=== PATIENT | female | born 1990 | race Caucasian/White ===

== ENCOUNTER 2018-01-15 18:14 | Emergency (ER) | payer OTHER ==
[~2018-01-15] VITALS: Ht 157.5 cm; Wt 103.0 kg
[~2018-01-15 18:14] MED LIST: BUPR150T15; RISP1TAB43
[2018-01-15 18:26] VITALS: BP 115/54
--- NOTE | 2018-01-15 18:52 | PHYS DOC ---
Past History Past Medical History: Anxiety, Depression Past Surgical History: No Surgical History Smoking: Non-smoker Alcohol Use: None Drug Use: None Adult General Chief Complaint Chief Complaint: ANKLE PROBLEM HPI HPI 27-year-old female presents with left ankle pain. The patient was at a local bar dancing with her significant other when she inverted her ankle. Pain, but was able to walk. She presents because it is swollen on the lateral aspect. She rates the pain as minor. She denies hitting her head or any other injuries. She has no other complaints. Review of Systems Review of Systems Constitutional: Denies fever or chills [] Eyes: Denies change in visual acuity, redness, or eye pain [] HENT: Denies nasal congestion or sore throat [] Respiratory: Denies cough or shortness of breath [] Cardiovascular: No additional information not addressed in HPI [] GI: Denies abdominal pain, nausea, vomiting, bloody stools or diarrhea [] : Denies dysuria or hematuria [] Musculoskeletal: Left ankle pain[] Integument: Denies rash or skin lesions [] Neurologic: Denies headache, focal weakness or sensory changes [] Endocrine: Denies polyuria or polydipsia [] All other systems were reviewed and found to be within normal limits, except as documented in this note. Allergies Allergies Allergies Coded Allergies Type Severity Reaction Last Updated Verified Penicillins Allergy Unknown 11/11/13 Yes Physical Exam Physical Exam Constitutional: Well developed, well nourished, no acute distress, non-toxic appearance. [] HENT: Normocephalic, atraumatic, bilateral external ears normal, oropharynx moist, no oral exudates, nose normal. [] Eyes: PERRLA, EOMI, conjunctiva normal, no discharge. [] Neck: Normal range of motion, no tenderness, supple, no stridor. [] Cardiovascular:Heart rate regular rhythm, no murmur [] Lungs & Thorax: Bilateral breath sounds clear to auscultation [] Abdomen: Bowel sounds normal, soft, no tenderness, no masses, no pulsatile masses. [] Skin: Warm, dry, no erythema, no rash. [] Back: No tenderness, no CVA tenderness. [] Extremities: Minor swelling of the lateral aspect of the right ankle. No tenderness over the medial or lateral malleolus. No tenderness over the proximal fibula. The patient is able to walk. Tenderness over the left ATFL[] Neurologic: Alert and oriented X 3, normal motor function, normal sensory function, no focal deficits noted. [] Psychologic: Affect normal, judgement normal, mood normal. [] Current Patient Data Vital Signs Vital Signs Date Time Temp Pulse Resp B/P (MAP) Pulse Ox O2 Delivery O2 Flow Rate FiO2 01/15/18 18:26 Room Air 01/15/18 18:26 98.2 78 20 99 EKG EKG [] Radiology/Procedures Radiology/Procedures [] Course & Med Decision Making Course & Med Decision Making Pertinent Labs and Imaging studies reviewed. (See chart for details) The patient appears to have a sprain of the left ATFL. We will place her in an air splint. [place] ankle rules are negative. X-rays are not necessary. [] Dragon Disclaimer Dragon Disclaimer This electronic medical record was generated, in whole or in part, using a voice recognition dictation system. Departure Departure: Referrals: NEELA SAVAGE (PCP) LEDA AVILA DO Jan 15, 2018 18:52
== END 2018-01-15 19:00 | disposition home or self-care (01) ==
LOC: ER 18:14
DX: S93.401A Sprain of unspecified ligament of right ankle, initial encounter (principal); F41.9 Anxiety disorder, unspecified; F32.9 Major depressive disorder, single episode, unspecified; Z88.0 Allergy status to penicillin; X50.9XXA Other and unspecified overexertion or strenuous movements or postures, initial encounter; Y93.41 Activity, dancing; Y99.8 Other external cause status; Y92.89 Other specified places as the place of occurrence of the external cause
CPT/HCPCS: 29515; 99283

== ENCOUNTER 2020-01-22 02:46 | Emergency (ER) | payer MEDICAID, OTHER ==
[~2020-01-22] VITALS: Ht 165.1 cm; Wt 123.0 kg
[2020-01-22 03:02] VITALS: BP 129/79
[2020-01-22] MEDS ORDERED: DEXAMETHASONE 4 MG TABLET PO ONE (03:15)
[2020-01-22] MEDS ORDERED: PRED20TA PO (03:16)
[2020-01-22] MEDS ORDERED: HYDR-3165 PO (03:16)
[2020-01-22] MEDS ORDERED: ORPH-16 PO (03:16)
--- NOTE | 2020-01-22 03:16 | PHYS DOC ---
Past History Past Medical History: Anxiety, Depression Past Surgical History: No Surgical History Smoking: Non-smoker Alcohol Use: None Drug Use: None General Adult EDM: Chief Complaint: BACK PAIN - NO INJURY HPI: HPI: 29-year-old female presents with report of left lower back pain. 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 Patient reports started to have some back discomfort at around 1900. Patient reports she was unable to sleep this evening. Patient does report taking 400 mg of ibuprofen at 0200 this morning. Denies fall. Denies loss of bowel or bladder. Denies rash. Denies . Review of Systems: Review of Systems: Constitutional: Denies fever or chills Eyes: Denies redness or eye pain HENT: Denies nasal congestion or sore throat Respiratory: Denies cough or shortness of breath Cardiovascular: Denies chest pain or palpitations GI: Denies abdominal pain, nausea, or vomiting : Denies dysuria or hematuria Musculoskeletal: Reports back pain; denies joint pain Integument: Denies rash or skin lesions Neurologic: Denies headache, focal weakness or sensory changes; denies loss of bowel or bladder Complete systems were reviewed and found to be within normal limits, except as documented in this note. Allergies: Allergies: Allergies Coded Allergies Type Severity Reaction Last Updated Verified Penicillins Allergy Unknown 11/11/13 Yes Physical Exam: PE: Constitutional: Well developed, well nourished, no acute distress, non-toxic appearance HENT: Normocephalic, atraumatic Eyes: Conjunctiva normal, no discharge Neck: Normal range of motion, supple Lungs & Thorax: No respiratory distress, equal chest rise and fall Skin: Warm, dry, no erythema, no rash Back: No midline tenderness, left paraspinal low lumbar tenderness, no CVA tenderness Extremities: No tenderness, ROM intact, no edema Neurologic: Alert and oriented X 3, normal motor function, normal sensory funct ion, no focal deficits noted Psychologic: Affect normal, judgment normal EKG: EKG: [] Radiology/Procedures: Radiology/Procedures: [] Course & Med Decision Making: Course & Med Decision Making Patient presents with back pain to low lumbar paraspinal region. Denies loss of bowel or bladder. Symptomatic treatment provided with ice pack and oral steroid. Patient reports she took ibuprofen prior to arrival. Patient reports she drove to facility. Prescriptions for Mullins, Norflex, and continue steroids provided. [facility] reports without recent narcotic prescription. Patient stable for discharge with outpatient follow-up with PCP. Discussed findings and plan with patient, who acknowledges understanding and agreement. Candi Disclaimer: Candi Disclaimer: This electronic medical record was generated, in whole or in part, using a voice recognition dictation system. Departure Departure: Impression: Primary Impression: Back pain Qualified Codes: M54.5 - Low back pain Disposition: HOME/RESIDENCE PRIOR TO ADM Condition: STABLE Referrals: NEELA SAVAGE (PCP) Patient Instructions: Back Pain, Adult, [id number] Additional Instructions: Jacques Franco M.D. [address] [facility], [address] [place], [place] [address] Scripts Hydrocodone Bit/Acetaminophen (NORCO 5-325 TABLET) 1 Each Tablet 0.5-1 TAB PO Q6HRS PRN for PAIN, #10 TAB Prov: NAYAN KASPER DO 01/22/20 Orphenadrine Citrate (ORPHENADRINE CITRATE) 100 Mg Tablet.er 1 TAB PO BID PRN for MUSCLE PAIN, #14 TAB Prov: NAYAN KASPER DO 01/22/20 Prednisone (PREDNISONE) 20 Mg Tablet 2 TAB PO DAILY for Back pain, #8 TAB Start this prescription tomorrow, Tuesday01/23/20 Prov: NAYAN KASPER DO 01/22/20 Justification of Admission: Justification of Admission: Justification of Admission Dx: N/A NAYAN KASPER DO Jan 22, 2020 03:16
[2020-01-22] MEDS ORDERED: DEXAMETHASONE 4 MG TABLET ONE (03:20)
== END 2020-01-22 03:25 | disposition home or self-care (01) ==
LOC: ER 02:46
DX: M54.5 Low back pain (principal); Z88.0 Allergy status to penicillin
CPT/HCPCS: 99283; J8540

== ENCOUNTER 2020-10-04 19:23 | Emergency (ER) | payer OTHER ==
[~2020-10-04] VITALS: Ht 165.1 cm; Wt 123.0 kg
[~2020-10-04 19:23] MED LIST changes: +HYDR-3165 PO; +ORPH-16 PO; +PRED20TA PO
[2020-10-04 19:38] VITALS: BP 121/78
[2020-10-04] MEDS ORDERED: IBUPROFEN 600 MG TABLET. PO ONE (19:45)
--- NOTE | 2020-10-04 19:49 | PHYS DOC ---
Past History Past Medical History: Anxiety, Bipolar, Depression (NAYAN GEORGE APRN) Past Surgical History: No Surgical History (NAYAN GEORGE APRN) Smoking: Non-smoker Alcohol Use: Rarely Drug Use: None (NAYAN GEORGE APRN) Adult General Chief Complaint Chief Complaint: FOOT INJURY PAIN HPI HPI Patient is a 30-year-old female who presents emergency department complaining of sudden onset right foot pain while walking yesterday around noon. Patient states she took Tylenol yesterday with minor pain relief, patient states she took one of her mother's "pain medications "today with some relief however her pain is now back to a 10/10 with a 10 pain scale. Patient states that she wrapped it with Coban and KT tape. Patient states she did not notice any improvement when foot was wrapped. Patient denies any other physical complaints or physical concerns. Patient states her last menstrual cycle was September 18, 2020 with normal duration of flow. Patient states she takes Vilar, Seroquel, Zoloft for manic depression, states she is allergic to penicillin. (NAYAN GEORGE APRN) Review of Systems Review of Systems Constitutional: Denies fever or chills [] Eyes: Denies change in visual acuity, redness, or eye pain [] HENT: Denies nasal congestion or sore throat [] Respiratory: Denies cough or shortness of breath [] Cardiovascular: No additional information not addressed in HPI [] GI: Denies abdominal pain, nausea, vomiting, bloody stools or diarrhea [] : Denies dysuria or hematuria [] Musculoskeletal: Denies back pain or joint pain [] Integument: Denies rash or skin lesions [] Neurologic: Denies headache, focal weakness or sensory changes [] Endocrine: Denies polyuria or polydipsia [] All other systems were reviewed and found to be within normal limits, except as documented in this note. (NAYAN GEORGE APRN) Current Medications Current Medications Current Medications Medications (Trade) Dose Ordered Sig/Poly Start Time Stop Time Status Last Admin Dose Admin Acetaminophen/ Hydrocodone Bitart (Lortab 5/325) 2 tab 1X ONCE 10/04/20 19:45 10/04/20 19:46 UNV Ibuprofen (Motrin) 600 mg 1X ONCE 10/04/20 19:45 10/04/20 19:46 UNV (NAYAN GEORGE APRN) Allergies Allergies Allergies Coded Allergies Type Severity Reaction Last Updated Verified Penicillins Allergy Unknown 10/04/20 Yes (NAYAN GEORGE APRN) Physical Exam Physical Exam Constitutional: Well developed, well nourished, no acute distress, non-toxic appearance. 30-year-old female no apparent distress. HENT: Normocephalic, atraumatic, bilateral external ears normal, oropharynx moist, no oral exudates, nose normal. Eyes: PERRLA, EOMI, conjunctiva normal, no discharge. Neck: Normal range of motion, no tenderness, supple, no stridor. Cardiovascular:Heart rate regular rhythm, no murmur Lungs & Thorax: Bilateral breath sounds clear to auscultation Abdomen: Bowel sounds normal, soft, no tenderness, no masses, no pulsatile ma sses. Skin: Warm, dry, no erythema, no rash. Back: No tenderness, no CVA tenderness. Extremities: No tenderness, no cyanosis, no clubbing, ROM intact, no edema. Except for right foot, COBAN and KT tape removed, no crepitus appreciated, no deformities appreciated, no swelling appreciated, full movement of toes. Pain along ventral aspect of first metatarsal. Full passive range of motion of ankle and toes without pain elicited. 2+ dorsalis pedis/posterior tibial pulses. Distal cap refill less than 2 seconds. Neurologic: Alert and oriented X 3, normal motor function, normal sensory function, no focal deficits noted. Psychologic: Affect normal, judgement normal, mood normal. (NAYAN GEORGE APRN) Current Patient Data Vital Signs Vital Signs Date Time Temp Pulse Resp B/P (MAP) Pulse Ox O2 Delivery O2 Flow Rate FiO2 10/04/20 19:38 96.0 85 16 121/78 (92) 98 Room Air (NAYAN GEORGE APRN) EKG EKG [] (NAYAN GEORGE APRN) Radiology/Procedures Radiology/Procedures PATIENT: KASSIE GUZMÁN MACCOUNT: [id number] : 1990 LOCATION: ER AGE: 30 SEX: F EXAM STATUS: REG ER ORD. PHYSICIAN: NAYAN GEORGE APRN REASON: MID FOOT PAIN, X 1 DAY, NO KNOWN INJURY PROCEDURE: FOOT RIGHT 3V EXAM: XR FOOT_RIGHT 3 VIEWS 10/04/2020 7:44 PM CLINICAL INDICATION: Midfoot pain COMPARISON: None TECHNIQUE: 3 views of the right foot FINDINGS: No acute fracture. Alignment is normal. Joint spaces are maintained and bone mineralization is normal. Soft tissues normal. IMPRESSION: Normal right foot radiograph. Electronically signed by: Adwoa Reynolds MD (10/04/2020 8:11 PM) [id number] DICTATED AND SIGNED BY: ADWOA REYNOLDS MD DATE: 10/04/202009 CC: NAYAN GEORGE APRN; RASHDI WARREN ~MTH0 0 (NAYAN GEORGE APRN) Heart Score C/O Chest Pain: No Risk Factors: Risk Factors: DM, Current or recent (<one month) smoker, HTN, HLP, family history of CAD, obesity. Risk Scores: Risk Factors: DM, Current or recent (<one month) smoker, HTN, HLP, family hi story of CAD, obesity. (NAYAN GEORGE APRN) Course & Med Decision Making Course & Med Decision Making Pertinent Labs and Imaging studies reviewed. (See chart for details) 30-year-old female, vital signs reviewed, presents emergency department concerning right foot pain. Physical examination concerning for possible spontaneous metatarsal fracture of the right foot. Will order x-ray to rule out fracture or other injury of the right foot, will give p.o. pain medications. X-ray negative for acute fracture, will recommend RICE therapy with patient, [id number] Tylenol Motrin for pain. Patient was wearing CROCS shoes for examination. Will recommend supportive shoes for work and ongoing daily life to help reduce foot pain. Will recommend podiatry follow-up. Patient gave verbal understanding of discharge home instructions, follow-up with primary care this week for ongoing aches and pains, return to ER precautions or concerns, was discharged home without incident. (NAYAN GEORGE APRN) Course & Med Decision Making Did not see or evaluate patient. Agree with TERRAZZO INSTALLER's work-up and disposition per note. (NEMESIO SALMERON MD) Dragon Disclaimer Dragon Disclaimer This electronic medical record was generated, in whole or in part, using a voice recognition dictation system. (NAYAN GEORGE APRN) Departure Departure: Impression: Primary Impression: Right foot pain Disposition: 01 DC HOME SELF CARE/HOMELESS Condition: GOOD Referrals: RASHID WARREN (PCP) Patient Instructions: RICE - Routine Care for Injuries Additional Instructions: Please use Fer wrap, and RICE therapy as we discussed. You may use [id number] Tylenol or Motrin for pains. Please follow-up with KO Parada for ongoing aches and pains, she may consider having you see a cyber systems operations specialist if symptoms do not improve soon. Return to the emergency department for worsening symptoms or other concerns. EMERGENCY DEPARTMENT GENERAL DISCHARGE INSTRUCTIONS Thank you for coming to [facility] (ED) today and trusting us with you care. We trust that you had a positivie experience in our Emergency Department. If you wish to speak to the department management, you may call the director at [phone]. YOUR FOLLOW UP INSTRUCTIONS ARE FOLLOWS: 1. Do you have a private Doctor? If you do not have a private doctor, please ask for a resource list of physicians or clinics that may be able to assist you with follow up care. 2. The Emergency Physician has interpreted your x-rays. The X-Ray specialist will also review them. If there is a change in the findings, you will be notified in 48 hours when at all possible. 3. A lab test or culture has been done, your results will be reviewed and you will be notified if you need a change in treatment. ADDITIONAL INSTRUCTIONS AND INFORMATION: 1. Your care today has been supervised by a physician who is specially trained in emergency care. Many problems require more than one evaluation for a complete diagnosis and treatment. We recommend that you schedule your follow up appointment as recommended to ensure complete treatment of you illness or injury. If you are unable to obtain follow up care and continue to have a problem, or if your condition worsens, we recommend that you return to the ED. 2. We are not able to safely determine your condition over the phone nor are we able to give sound medical advice over the phone. For these safety reasons, if you call for medical advice we will ask you to come to the ED for further evaluation. 3. If you have any questions regarding these discharge instructions please call the ED at [phone]. SAFETY INFORMATION: In the interest of safety, wellness, and injury prevention; we encourage you to wear your sealbelt, if you smoke; quite smoking, and we encourage family to use a protective helmet for bicycling and other sporting events that present an increased risk for head injury. IF YOUR SYMPTOMS WORSEN OR NEW SYMPTOMS DEVELOP, OR YOU HAVE CONCERNS ABOUT YOUR CONDITION; OR IF YOUR CONDITION WORSENS WHILE YOU ARE WAITING FOR YOUR FOLLOW UP APPOINTMENT; EITHER CONTACT YOUR PRIMARY CARE DOCTOR, THE PHYSICIAN WHOSE NAME AND NUMBER YOU WERE GIVEN, OR RETURN TO THE ED IMMEDIATELY. NAYAN GEORGE APRN Oct 04, 2020 19:49 NEMESIO SALMERON MD Oct 04, 2020 23:11
--- NOTE | 2020-10-04 20:13 | RAD ---
EXAM: XR FOOT_RIGHT 3 VIEWS 10/04/2020 7:44 PM CLINICAL INDICATION: Midfoot pain COMPARISON: None TECHNIQUE: 3 views of the right foot FINDINGS: No acute fracture. Alignment is normal. Joint spaces are maintained and bone mineralizatio n is normal. Soft tissues normal. IMPRESSION: Normal right foot radiograph. Electronically signed by: Adwoa Reynolds MD (10/04/2020 8:11 PM) [id number]
[2020-10-04] MEDS ORDERED: HYDROcodone/APAP 5/325MG 1 TAB TABLET PO ONE (20:15)
== END 2020-10-04 20:45 | disposition home or self-care (01) ==
LOC: ER 19:23
DX: M79.671 Pain in right foot (principal); Z88.0 Allergy status to penicillin
CPT/HCPCS: 73630; 99283

== ENCOUNTER 2021-06-10 23:58 | Emergency (ER) | payer OTHER ==
[~2021-06-10] VITALS: Ht 162.6 cm; Wt 118.0 kg
[2021-06-11 00:12] VITALS: BP 120/84
--- NOTE | 2021-06-11 00:34 | PHYS DOC ---
Past History Past Medical History: Anxiety, Bipolar, Depression Past Surgical History: No Surgical History Smoking: Non-smoker Alcohol Use: Occasionally Drug Use: None Adult General Chief Complaint Chief Complaint: COUGH HPI HPI Patient is a 31-year-old female, otherwise healthy who presents to the emergency department with a chief complaint of concern for allergic reaction. States that she took some cough syrup a couple hours before coming to the emergency department which made her tongue feel weird and like it was swollen although it did not appear swollen when she looked at it in the mirror. Denies any headache, changes in vision, pain or trouble swallowing, chest pain, shortness o f breath, wheeze, abdominal pain, nausea, vomiting, diarrhea. Denies any lightheadedness or trouble sitting, standing or walking. Review of Systems Review of Systems Review of systems otherwise unremarkable except noted in HPI Allergies Allergies Allergies Coded Allergies Type Severity Reaction Last Updated Verified Penicillins Allergy Unknown 10/04/20 Yes Physical Exam Physical Exam Constitutional: Well developed, well nourished, no acute distress, non-toxic appearance. [] HENT: Normocephalic, atraumatic, bilateral external ears normal, oropharynx moist, no oral exudates, nose normal. [] Eyes: PERRLA, EOMI, conjunctiva normal, no discharge. [] Neck: Normal range of motion, no tenderness, supple, no stridor. [] Cardiovascular:Heart rate regular rhythm, no murmur [] Lungs & Thorax: Bilateral breath sounds clear to auscultation [] Abdomen: soft, no tenderness, no masses, no pulsatile masses. [] Skin: Warm, dry, no erythema, no rash. [] Back: No tenderness, no CVA tenderness. [] Extremities: No tenderness, no cyanosis, no clubbing, ROM intact, no edema. [] Neurologic: Alert and oriented X 3, normal motor function, normal sensory function, able to sit, stand and walk without issue, no focal deficits noted. [] Psychologic: Affect normal, judgement normal, mood normal. [] Current Patient Data Vital Signs Vital Signs Date Time Temp Pulse Resp B/P (MAP) Pulse Ox O2 Delivery O2 Flow Rate FiO2 06/11/21 00:12 97.9 112 18 120/84 (96) 95 Room Air EKG EKG [] Radiology/Procedures Radiology/Procedures [] Heart Score C/O Chest Pain: No Risk Factors: Risk Factors: DM, Current or recent (<one month) smoker, HTN, HLP, family history of CAD, obesity. Risk Scores: Risk Factors: DM, Current or recent (<one month) smoker, HTN, HLP, family history of CAD, obesity. Course & Med Decision Making Course & Med Decision Making Patient is a 31-year-old female who presents after taking some cough medicine with concern for allergic reaction Vital signs not concerning. Physical exam noted above. Patient alert and oriented no acute distress with no signs of anaphylaxis. Advised to stay away from the cough syrup that Maitre tongue feel funny. Advised to follow-up with primary care physician. Gave return precautions to the ED. Patient grateful, verbalized understanding and agreed with plan of discharge. [] Dragon Disclaimer Dragon Disclaimer This electronic medical record was generated, in whole or in part, using a voice recognition dictation system. Departure Departure: Impression: Primary Impression: Allergic reaction Disposition: HOME / SELF CARE / HOMELESS Condition: GOOD Referrals: RASHID WARREN (PCP) Patient Instructions: Allergies, Generic Additional Instructions: Thank you for coming into the emergency department tonight and allowing us to take care of you. Please read the attached information carefully to go back over some of the things we discussed. Please follow-up in the morning with your primary care physician to discuss your ED visit and set up a follow-up as needed. Please come back with new or concerning symptoms as discussed. NEMESIO SALMERON MD Jun 11, 2021 00:34
[2021-06-11] MEDS ORDERED: DEXAMETHASONE 4 MG TABLET PO ONE (01:00)
[2021-06-11] MEDS ORDERED: diphenhydrAMINE HCL 25 MG CAPSULE PO ONE (01:00)
== END 2021-06-11 00:54 | disposition home or self-care (01) ==
LOC: ER 23:58
DX: T78.40XA Allergy, unspecified, initial encounter (principal); F31.9 Bipolar disorder, unspecified; F41.9 Anxiety disorder, unspecified; Z88.0 Allergy status to penicillin; X58.XXXA Exposure to other specified factors, initial encounter
CPT/HCPCS: 99283; J8540; Q0163

== ENCOUNTER 2021-11-09 17:12 | Emergency (ER) | payer OTHER ==
[~2021-11-09] VITALS: Ht 162.6 cm; Wt 118.0 kg
[2021-11-09 18:24] VITALS: BP 118/38
[2021-11-09 19:10] LABS: CLARITY,URINE CLOUDY; COLOR,URINE YELLOW; GLUCOSE,URINE NEG (NEG)
[2021-11-09 19:11] LABS: BACTERIA,URINE MANY /HPF (0-FEW); NITRITE,URINE NEG (NEG); RBC,URINE TNTC /HPF (0-2); SQUAMOUS EPITHELIAL CELL,UR MANY /LPF; UROBILINOGEN,URINE 0.2 mg/dL (0.2 mg/dL)
--- NOTE | 2021-11-09 19:18 | PHYS DOC ---
Past History Past Medical History: Anxiety, Bipolar, Depression Past Surgical History: No Surgical History Smoking: Non-smoker Alcohol Use: Occasionally Drug Use: None General Adult EDM: Chief Complaint: BACK PAIN OR INJURY HPI: HPI: Patient is a 31-year-old female presents with right-sided back pain that rad iates to right lower abdomen. Denies pain with urination. Denies nausea/vomiting/diarrhea. Patient states that she does have a history of kidney stones. History of anxiety, depression, bipolar disorder Review of Systems: Review of Systems: ROS At least 10 ROS systems have been reviewed and are negative except as documented in the HPI. General: Negative except as outlined in HPI above. Skin: Negative except as outlined in HPI above. HEENT: Negative except as outlined in HPI above. Neck: Negative except as outlined in HPI above. Respiratory: Negative except as outlined in HPI above.. Cardiovascular: Negative except as outlined in HPI above. Abdomen: Negative except as outlined in HPI above. : Negative except as outlined in HPI above. Back/MSK: Negative except as outlined in HPI above. Neuro: Negative except as outlined in HPI above. Psych: Negative except as outlined in HPI above. Allergies: Allergies: Allergies Coded Allergies Type Severity Reaction Last Updated Verified Penicillins Allergy Unknown 10/04/20 Yes Physical Exam: PE: Constitutional: Well developed, well nourished, no acute distress, non-toxic appearance. [] HENT: Normocephalic, atraumatic, bilateral external ears normal, oropharynx moist, no oral exudates, nose normal. [] Eyes: PERRLA, EOMI, conjunctiva normal, no discharge. [] Neck: Normal range of motion, no tenderness, supple, no stridor. [] Cardiovascular:Heart rate regular rhythm, no murmur [] Lungs & Thorax: Bilateral breath sounds clear to auscultation [] Abdomen: Bowel sounds normal, soft, no tenderness, no masses Skin: Warm, dry, no erythema, no rash. [] Back: Right-sided back tenderness, no CVA tenderness. [] Extremities: No tenderness, no cyanosis, no clubbing, ROM intact, no edema. [] Neurologic: Alert and oriented X 3, normal motor function, normal sensory function, no focal deficits noted. [] Psychologic: Affect normal, judgement normal, mood normal. [] Current Patient Data: Labs: Laboratory Tests Test 11/09/21 17:52 POC Urine HCG, Qualitative hcg negative (Negative) Vital Signs: Vital Signs Date Time Temp Pulse Resp B/P (MAP) Pulse Ox O2 Delivery O2 Flow Rate FiO2 11/09/21 18:24 97.9 84 16 118/38 (64) 98 Room Air EKG: EKG: [] Radiology/Procedures: Radiology/Procedures: []Abdominal and Pelvis CT, Without Contrast: History: Reason: RLQ PAIN / Spl. Instructions: / History: Comparison: None. Procedure: Axial images are obtained of the abdomen and pelvis, without IV or oral contrast. Oral Contrast: No Findings: Evaluation of solid organs is limited without contrast. The appendix is normal. The gallbladder appears normal. Liver: Normal. Spleen: Normal. Pancreas: Normal. Adrenal Glands: Normal. Kidneys: There is moderate hydronephrosis secondary to a 6 mm UPJ stone. There is additional small nonobstructing stones in the right renal pelvis. Left kidney appears normal. There is no free air or free fluid. There is no lymphadenopathy. The urinary bladder appears normal. There is no pericolonic inflammation identified. There is a right hip effusion. Impression: 1. Moderate right hydronephrosis secondary to a 6 mm UPJ stone. 2. Right hip effusion. End impression PQRS Compliance Statement: One or more of the following individualized dose reduction techniques were utilized for this examination: 1. Automated exposure control 2. Adjustment of the mA and/or kV according to patient size 3. Use of iterative reconstruction technique Electronically signed by: Mary Jane Hoyt III, MD (11/09/2021 7:46 PM) [facility] DICTATED AND SIGNED BY: MARY JANE HOYT III, MD DATE: 11/09/211941 CC: ARABELLA ARIAS MD; RAJANI LOPES APRN; RASHID WARREN ~ Heart Score: C/O Chest Pain: No Risk Factors: Risk Factors: DM, Current or recent (<one month) smoker, HTN, HLP, family history of CAD, obesity. Risk Scores: Score 0 - 3: 2.5% MACE over next 6 weeks - Discharge Home Score 4 - 6: 20.3% MACE over next 6 weeks - Admit for Clinical Observation Score 7 - 10: 72.7% MACE over next 6 weeks - Early Invasive Strategies Course & Med Decision Making: Course & Med Decision Making Pertinent Labs and Imaging studies reviewed. (See chart for details) [] 29-year-old female presents with right-sided back pain that radiates to her right lower abdomen. No dysuria or frequency. UA and test ordered. UA is positive for large blood. 5-[address] shows Moderate right hydronephrosis secondary to a 6 mm UPJ stone. Patient given Flomax. Urine negative for infection. Patient sent home with prescription for hydrocodone, Flomax, urology consult. Discussed return pre cautions with patient. Advised patient to drink plenty of fluids. Dragon Disclaimer: Orderlordon Disclaimer: This electronic medical record was generated, in whole or in part, using a voice recognition dictation system. Departure Departure: Impression: Primary Impression: Kidney stone Disposition: HOME / SELF CARE / HOMELESS Condition: STABLE Referrals: RASHID WARREN (PCP) Patient Instructions: Kidney Stones, [id number] Additional Instructions: You are seen in the emergency room for flank pain. CT of your abdomen pelvis showed a 6 mm kidney stone. Sending you home with prescription for hydrocodone for pain, Flomax, strainer. Please make sure that you follow-up with urology. Return emergency room if you have worsening symptoms or concerns such as increasing pain, fever uncontrolled nausea and vomiting. EMERGENCY DEPARTMENT GENERAL DISCHARGE INSTRUCTIONS Thank you for coming to [facility] (ED) today and trusting us with you care. We trust that you had a positivie experience in our Emergency Department. If you wish to speak to the department management, you may call the director at [phone]. YOUR FOLLOW UP INSTRUCTIONS ARE FOLLOWS: 1. Do you have a private Doctor? If you do not have a private doctor, please ask for a resource list of physicians or clinics that may be able to assist you with follow up care. 2. The Emergency Physician has interpreted your x-rays. The X-Ray specialist will also review them. If there is a change in the findings, you will be notified in 48 hours when at all possible. 3. A lab test or culture has been done, your results will be reviewed and you will be notified if you need a change in treatment. ADDITIONAL INSTRUCTIONS AND INFORMATION: 1. Your care today has been supervised by a physician who is specially trained in emergency care. Many problems require more than one evaluation for a complete diagnosis and treatment. We recommend that you schedule your follow up appointment as recommended to ensure complete treatment of you illness or injury. If you are unable to obtain follow up care and continue to have a problem, or if your condition worsens, we recommend that you return to the ED. 2. We are not able to safely determine your condition over the phone nor are we able to give sound medical advice over the phone. For these safety reasons, if you call for medical advice we will ask you to come to the ED for further evaluation. 3. If you have any questions regarding these discharge instructions please call the ED at [phone]. SAFETY INFORMATION: In the interest of safety, wellness, and injury prevention; we encourage you to wear your sealbelt, if you smoke; quite smoking, and we encourage family to use a protective helmet for bicycling and other sporting events that present an increased risk for head injury. IF YOUR SYMPTOMS WORSEN OR NEW SYMPTOMS DEVELOP, OR YOU HAVE CONCERNS ABOUT YOUR CONDITION; OR IF YOUR CONDITION WORSENS WHILE YOU ARE WAITING FOR YOUR FOLLOW UP APPOINTMENT; EITHER CONTACT YOUR PRIMARY CARE DOCTOR, THE PHYSICIAN WHOSE NAME AND NUMBER YOU WERE GIVEN, OR RETURN TO THE ED IMMEDIATELY. Scripts Tamsulosin Hcl (FLOMAX) 0.4 Mg Cap.er.24h 1 CAP PO DAILY for kidney stone for 14 Days, #14 CAP 0 Refills Prov: RAJANI LOPES APRN 11/09/21 RAJANI LOPES APRN November 09, 2021 19:18
--- NOTE | 2021-11-09 19:49 | RAD ---
Abdominal and Pelvis CT, Without Contrast: History: Reason: RLQ PAIN / Spl. Instructions: / History: Comparison: None. Procedure: Axial images are obtained of the abdomen and pelvis, without IV or oral contrast. Oral Contrast: No Findings: Evaluation of solid organs is limited without contrast. The appendix is normal. The gallbladder appears normal. Liver: Normal. Spleen: Normal. Pancreas: Normal. Adrenal Glands: Normal. Kidneys: There is moderate hydronephrosis secondary to a 6 mm UPJ stone. There is additional small no nobstructing stones in the right renal pelvis. Left kidney appears normal. There is no free air or free fluid. There is no lymphadenopathy. The urinary bladder appears normal. There is no pericolonic inflammation identified. There is a right hip effusion. Impression: 1. Moderate right hydronephrosis secondary to a 6 mm UPJ stone. 2. Right hip effusion. End impression PQRS Compliance Statement: One or more of the following individualized dose reduction techniques were utilized for this examinat ion: 1. Automated exposure control 2. Adjustment of the mA and/or kV according to patient size 3. Use of iterative reconstruction technique Electronically signed by: Reese Salinas III, MD (11/09/2021 7:46 PM) [facility]
[2021-11-09] MEDS ORDERED: TAMS0.4C97 PO (20:36)
[2021-11-09] MEDS ORDERED: TAMSULOSIN 0.4 MG CAP.ER.24H. PO ONE (20:45)
== END 2021-11-09 20:52 | disposition home or self-care (01) ==
LOC: ER 17:12
DX: N20.0 Calculus of kidney (principal)
CPT/HCPCS: 74176; 81001; 81025; 87086; 99284-25

== ENCOUNTER 2021-11-11 10:45 | Emergency (ER) | payer OTHER ==
[~2021-11-11] VITALS: Ht 157.5 cm; Wt 122.0 kg
[~2021-11-11 10:45] MED LIST changes: +TAMS0.4C97 PO
[2021-11-11] MEDS ORDERED: IV NORMAL SALINE 1,000ML 1,000 ML IV ONE (11:15)
[2021-11-11] MEDS ORDERED: KETOROLAC 30 MG/ML VIAL. IVP ONE (11:15)
--- NOTE | 2021-11-11 11:24 | PHYS DOC ---
Past History Past Medical History: Anxiety, Bipolar, Depression Past Surgical History: No Surgical History Smoking: Non-smoker Alcohol Use: Occasionally Drug Use: None General Adult EDM: Chief Complaint: FLANK PAIN HPI: HPI: Patient is a 31-year-old female who presents to the emergency department for right flank pain that radiates into her right sided upper and lower abdomen with nausea and vomiting. Patient is not actively vomiting. Patient rates her pain 10 out of 10. She was seen in this emergency department 2 days prior and diagnosed with a 6 mm stone in her right UPJ with moderate hydroureter. Patient was discharged at that time with Flomax and pain medication. She reports the pain medication is not improving her symptoms. Patient denies any fevers, hematuria, dysuria. Review of Systems: Review of Systems: Constitutional: see HPI GI: see HPI : see HPI Musculoskeletal: see HPI Current Medications: Current Meds: Current Medications Medications (Trade) Dose Ordered Sig/Poly Start Time Stop Time Status Last Admin Dose Admin Fentanyl Citrate (Fentanyl 2ml Vial) 50 mcg 1X ONCE 11/11/21 11:15 11/11/21 11:16 UNV 11/11/21 11:13 50 MCG Ketorolac Tromethamine (Toradol 30mg Vial) 30 mg 1X ONCE 11/11/21 11:15 11/11/21 11:16 UNV 11/11/21 11:13 30 MG Sodium Chloride 1,000 ml @ 1,000 mls/hr 1X ONCE 11/11/21 11:15 11/11/21 12:14 UNV 11/11/21 11:14 1,000 MLS/HR Allergies: Allergies: Allergies Coded Allergies Type Severity Reaction Last Updated Verified Penicillins Allergy Unknown 10/04/20 Yes Physical Exam: PE: Constitutional: Well developed, well nourished, no acute distress, non-toxic appearance. [] HENT: Normocephalic, atraumatic, bilateral external ears normal, oropharynx moist, no oral exudates, nose normal. [] Eyes: PERRL, EOMI, conjunctiva normal, no discharge. [] Neck: Normal range of motion, no tenderness, supple, no stridor. [] Cardiovascular:Heart rate regular rhythm, no murmur [] Lungs & Thorax: Bilateral breath sounds clear to auscultation [] Abdomen: Bowel sounds normal, soft, right upper and lower abdominal pain with palpation, no rigidity, no masses, no pulsatile masses. [] Skin: Warm, dry, no erythema, no rash. [] Back: No tenderness, right CVA tenderness Extremities: No tenderness, no cyanosis, no clubbing, ROM intact, no edema. [] Neurologic: Alert and oriented X 3, normal motor function, normal sensory function, no focal deficits noted. [] Psychologic: Affect normal, judgement normal, mood normal. [] Current Patient Data: Labs: Laboratory Tests Test 11/11/21 11:14 11/11/21 12:30 White Blood Count 7.2 x10^3/uL Red Blood Count 4.81 x10^6/uL Hemoglobin 13.0 g/dL Hematocrit 40.0 % Mean Corpuscular Volume 83 fL Mean Corpuscular Hemoglobin 27 pg Mean Corpuscular Hemoglobin Concent 33 g/dL Red Cell Distribution Width 15.4 % Platelet Count 244 x10^3/uL Neutrophils (%) (Auto) 77 % Lymphocytes (%) (Auto) 18 % Monocytes (%) (Auto) 3 % Eosinophils (%) (Auto) 1 % Basophils (%) (Auto) 1 % Neutrophils # (Auto) 5.5 x10^3uL Lymphocytes # (Auto) 1.3 x10^3/uL Monocytes # (Auto) 0.2 x10^3/uL Eosinophils # (Auto) 0.1 x10^3/uL Basophils # (Auto) 0.1 x10^3/uL Sodium Level 140 mmol/L Potassium Level 3.9 mmol/L Chloride Level 104 mmol/L Carbon Dioxide Level 24 mmol/L Anion Gap 12 Blood Urea Nitrogen 13 mg/dL Creatinine 1.0 mg/dL Estimated GFR (Cockcroft-Gault) 64.3 BUN/Creatinine Ratio 13 Glucose Level 133 mg/dL Calcium Level 9.4 mg/dL Total Bilirubin 0.2 mg/dL Aspartate Amino Transf (AST/SGOT) 21 U/L Alanine Aminotransferase (ALT/SGPT) 37 U/L Alkaline Phosphatase 81 U/L Total Protein 7.7 g/dL Albumin 3.6 g/dL Albumin/Globulin Ratio 0.9 Urine Collection Type Unknown Urine Color Yellow Urine Clarity Cloudy Urine pH 8.0 Urine Specific Mcclave 1.020 Urine Protein Neg Urine Glucose (UA) Neg mg/dL Urine Ketones (Stick) Neg mg/dL Urine Blood Large Urine Nitrite Neg Urine Bilirubin Neg Urine Urobilinogen Dipstick 0.2 mg/dL Urine Leukocyte Esterase Neg Urine RBC >40 /HPF Urine WBC Occ /HPF Urine Squamous Epithelial Cells Many /LPF Urine Bacteria Mod /HPF Urine Mucus Slight /LPF Current Medications Medications (Trade) Dose Ordered Sig/Poly Route PRN Reason Start Time Stop Time Status Last Admin Dose Admin Ketorolac Tromethamine (Toradol 30mg Vial) 30 mg 1X ONCE IVP 11/11/21 11:15 11/11/21 11:31 DC 11/11/21 11:13 Fentanyl Citrate (Fentanyl 2ml Vial) 50 mcg 1X ONCE IVP 11/11/21 11:15 11/11/21 11:26 DC 11/11/21 11:13 Sodium Chloride 1,000 ml @ 1,000 mls/hr 1X ONCE IV 11/11/21 11:15 11/11/21 12:14 DC 11/11/21 11:14 Morphine Sulfate (Morphine 2mg Syringe) 2 mg 1X ONCE IV 11/11/21 11:30 11/11/21 11:31 DC 11/11/21 11:31 Morphine Sulfate (Morphine 2mg Syringe) 2 mg 1X ONCE IV 11/11/21 12:15 11/11/21 12:16 DC Vital Signs: Vital Signs Date Time Temp Pulse Resp B/P (MAP) Pulse Ox O2 Delivery O2 Flow Rate FiO2 11/11/21 11:02 97.7 80 28 129/84 (99) 100 Room Air EKG: EKG: [] Radiology/Procedures: Radiology/Procedures: [] Heart Score: C/O Chest Pain: N/A Risk Factors: Risk Factors: DM, Current or recent (<one month) smoker, HTN, HLP, family history of CAD, obesity. Risk Scores: Score 0 - 3: 2.5% MACE over next 6 weeks - Discharge Home Score 4 - 6: 20.3% MACE over next 6 weeks - Admit for Clinical Observation Score 7 - 10: 72.7% MACE over next 6 weeks - Early Invasive Strategies Course & Med Decision Making: Course & Med Decision Making Pertinent Labs and Imaging studies reviewed. (See chart for details) Patient presents to the emergency department for right flank pain that radiates to her right abdomen with a history of a 6 mm stone in her right UPJ. Patient was discharged 2 days ago from this emergency department with Ashby and Flomax. Work-up in the ER consisted of blood work kidney function and urinalysis. Patient's pain was treated and she was given IV fluids. Patient's blood work was unremarkable, normal renal function and her urine was not infected. I discussed patient's case with the PA on-call with the urology group at [facility] and she stated that if the patient did not have an stone and she can follow-up outpatient in the next 1 to 2 days in the office. Following treatment in the emergency department, patient reports that her pain has greatly improved. Patient will be discharged home with pain medication and nausea medication. She will be given follow-up information for the urology group. I discussed with patient all findings and diagnostic testing as well as the need to follow-up with PCP for further evaluation and treatment or return to the ER if any new or worsening symptoms. Strict return precautions were also discussed at length. Patient voiced understanding and agreement with the plan. Patient is hemodynamically stable at the time of disposition. Dragon Disclaimer: Draglorraine Disclaimer: This electronic medical record was generated, in whole or in part, using a voice recognition dictation system. Departure Departure: Impression: Primary Impression: Flank pain Additional Impression: Kidney stone Disposition: 01 HOME / SELF CARE / HOMELESS Condition: GOOD Referrals: RASHID WARREN (PCP) Patient Instructions: Kidney Stones Additional Instructions: [facility] urology group [phone] You were seen in the emergency department today for flank pain. You are being discharged home with pain medication. This medication is hydrocodone and Tylenol combination tablet. This medication may cause sedation so do not take when you need to be alert, driving a vehicle or with alcohol. You are also being discharged home with nausea medication that you can take as needed. Increase your fluids. Continue taking the Flomax as previously prescribed. Please call the urologist at [facility] when you leave the ER to set up a follow-up appointment. You should follow-up with them in the next 1 to 2 days. Please go to [facility] where they have urology coverage if you develop worsening of your pain, high fevers refractory to treatment, intractable nausea or vomiting or any new or worsening concerns. Scripts Ondansetron (ONDANSETRON ODT) 4 Mg Tab.rapdis 1 TAB PO PRN Q6-8HRS for nausea for 7 Days, #28 TAB 0 Refills Prov: TRACEY AGUIRRE APRN 11/11/21 Hydrocodone Bit/Acetaminophen (HYDROCODONE-APAP 5-325 ) 1 Each Tablet 1 TAB PO PRN Q6HRS PRN for PAIN for 2 Days, #8 TAB 0 Refills Prov: TRACEY AGUIRRE APRN 11/11/21 TRACEY AGUIRRE APRN November 11, 2021 11:23
[2021-11-11] MEDS ORDERED: MORPHINE SULFATE 2 MG/ML DISP.SYRIN. IV ONE ×2 (11:30→12:15)
[2021-11-11 11:32] LABS: BASO # 0.1 x10^3/uL (0.0-0.2); BASO % 1 % (0-3); EOS # 0.1 x10^3/uL (0.0-0.7); EOS % 1 % (0-3); LYMPH # 1.3 x10^3/uL (1.0-4.8); LYMPH % 18 % (24-48); MEAN CORPUSCULAR HEMOGLOBIN 27 pg (25-35); MEAN CORPUSCULAR HGB CONC 33 g/dL (31-37); MEAN CORPUSCULAR VOLUME 83 fL (79-100); MONO # 0.2 x10^3/uL (0.0-1.1); MONO % 3 % (0-9); NEUT # 5.5 x10^3uL (1.8-7.7); NEUT % 77 % (31-73); PLATELET COUNT 244 x10^3/uL (140-400); RED BLOOD COUNT 4.81 x10^6/uL (3.50-5.40); RED CELL DISTRIBUTION WIDTH 15.4 % (11.5-14.5); WHITE BLOOD COUNT 7.2 x10^3/uL (4.0-11.0)
[2021-11-11 11:45] LABS: CALCIUM 9.4 mg/dL (8.5-10.1); GFR 64.3; POTASSIUM 3.9 mmol/L (3.5-5.1)
[2021-11-11 11:51] LABS: ALBUMIN 3.6 g/dL (3.4-5.0); ALBUMIN/GLOBULIN RATIO 0.9 (1.0-1.7); TOTAL BILIRUBIN 0.2 mg/dL (0.2-1.0); TOTAL PROTEIN 7.7 g/dL (6.4-8.2)
[2021-11-11 12:48] LABS: BACTERIA,URINE MOD /HPF (0-FEW); CLARITY,URINE CLOUDY; COLOR,URINE YELLOW; GLUCOSE,URINE NEG (NEG); NITRITE,URINE NEG (NEG); RBC,URINE >40 /HPF (0-2); SQUAMOUS EPITHELIAL CELL,UR MANY /LPF; UROBILINOGEN,URINE 0.2 mg/dL (0.2 mg/dL); WBC,URINE OCC /HPF (0-4)
[2021-11-11 13:00] VITALS: BP 118/67
[2021-11-11] MEDS ORDERED: ONDA4TAB12 PO (13:02)
[2021-11-11] MEDS ORDERED: HYDR-2155 PO (13:02)
== END 2021-11-11 13:40 | disposition home or self-care (01) ==
LOC: ER 10:45
DX: N20.0 Calculus of kidney (principal); F41.9 Anxiety disorder, unspecified; F31.9 Bipolar disorder, unspecified; Z88.0 Allergy status to penicillin
CPT/HCPCS: 36415; 80053; 81001; 85025; 87086; 96361; 96374; 96375; 99285; J1885; J2270; J3010; J7030

== ENCOUNTER 2021-11-16 14:01 | Emergency (ER) | payer OTHER ==
[~2021-11-16] VITALS: Ht 157.5 cm; Wt 122.0 kg
[~2021-11-16 14:01] MED LIST changes: +HYDR-2155 PO; +ONDA4TAB12 PO
[2021-11-16 14:06] VITALS: BP 133/88
--- NOTE | 2021-11-16 14:29 | PHYS DOC ---
Past History Past Medical History: Anxiety, Bipolar, Depression Past Surgical History: No Surgical History Smoking: Non-smoker Alcohol Use: Occasionally Drug Use: None General Adult EDM: Chief Complaint: FLANK PAIN HPI: HPI: Patient is a 31-year-old female who presents with right-sided flank pain. Patient was seen for 2 previous ER visits since last week. CT showed a 6 mm UPJ stone. Patient was seen for pain control and also given a urology referral. Patient states that she called urology today and was unable to get an appointment till . Patient states that her pain has not been controlled at home. Patient has taken 1 hydrocodone and 1 Zofran this morning for pain and nausea. Patient's reporting pain 02/03. Patient is denying dysuria, hematuria. Review of Systems: Review of Systems: ROS At least 10 ROS systems have been reviewed and are negative except as documented in the HPI. General: Negative except as outlined in HPI above. Skin: Negative except as outlined in HPI above. HEENT: Negative except as outlined in HPI above. Neck: Negative except as outlined in HPI above. Respiratory: Negative except as outlined in HPI above.. Cardiovascular: Negative except as outlined in HPI above. Abdomen: Negative except as outlined in HPI above. : Negative except as outlined in HPI above. Back/MSK: Negative except as outlined in HPI above. Neuro: Negative except as outlined in HPI above. Psych: Negative except as outlined in HPI above. Allergies: Allergies: Allergies Coded Allergies Type Severity Reaction Last Updated Verified Penicillins Allergy Unknown 10/04/20 Yes Physical Exam: PE: Constitutional: Well developed, well nourished, no acute distress, non-toxic appearance. [] HENT: Normocephalic, atraumatic, bilateral external ears normal, oropharynx moist, no oral exudates, nose normal. [] Eyes: PERRLA, EOMI, conjunctiva normal, no discharge. [] Neck: Normal range of motion, no tenderness, supple, no stridor. [] Cardiovascular:Heart rate regular rhythm, no murmur [] Lungs & Thorax: Bilateral breath sounds clear to auscultation [] Abdomen: Bowel sounds normal, soft, right-sided flank pain on palpation Skin: Warm, dry, no erythema, no rash. [] Back: No tenderness, no CVA tenderness. [] Extremities: No tenderness, no cyanosis, no clubbing, ROM intact, no edema. [] Neurologic: Alert and oriented X 3, normal motor function, normal sensory function, no focal deficits noted. [] Psychologic: Affect normal, judgement normal, mood normal. [] Current Patient Data: Vital Signs: Vital Signs Date Time Temp Pulse Resp B/P (MAP) Pulse Ox O2 Delivery O2 Flow Rate FiO2 11/16/21 14:06 97.9 77 20 133/88 (103) 100 Room Air EKG: EKG: [] Radiology/Procedures: Radiology/Procedures: []EXAM: RENAL ULTRASOUND CLINICAL HISTORY: Reason: right flank pain / Spl. Instructions: / History: COMPARISON: None available. TECHNIQUE: Ultrasound examination of the bilateral kidneys and urinary bladder was performed. FINDINGS: Right kidney measures 11 cm in length. Moderate right-sided hydronephrosis. Left kidney measures 9.2 cm in long axis. No hydronephrosis. Bladder is decompressed not well evaluated. Visualized portions aorta and IVC are unremarkable. IMPRESSION: Moderate right-sided hydronephrosis Electronically signed by: Natacha Harris MD (11/16/2021 4:13 PM) [facility] Heart Score: C/O Chest Pain: No Risk Factors: Risk Factors: DM, Current or recent (<one month) smoker, HTN, HLP, family history of CAD, obesity. Risk Scores: Score 0 - 3: 2.5% MACE over next 6 weeks - Discharge Home Score 4 - 6: 20.3% MACE over next 6 weeks - Admit for Clinical Observation Score 7 - 10: 72.7% MACE over next 6 weeks - Early Invasive Strategies Course & Med Decision Making: Course & Med Decision Making Pertinent Labs and Imaging studies reviewed. (See chart for details) [] 31-year-old female presents with right sided flank pain. Patient was diagnosed last week with a 6 mm UPJ stone. Patient returned and additional time last week for pain control. Patient was instructed to follow-up with urology but states that she cannot get into see the urologist until . Patient states she is unable to control her pain at home. Work-up in ER consisted of urinalysis, blood work, bilateral renal ultrasound. Patient's pain and nausea was treated while in the emergency room. Patient was also given fluids. Patient's pain has improved on reassessment. Ultrasound shows moderate, right hydronephrosis. I discussed all results with patient. I consulted urology at [facility]. Urology was okay with patient following up on with her appointment. If pain is to worsen after at home medications, return to the ER for further management and admit for pain control. I discussed with patient pain control at home. Advised patient she can also take ibuprofen for breakthrough pain. Patient agrees with discharge plan and follow-up. Discussed return precautions in length. Patient verbalizes understanding. Candi Disclaimer: Candi Disclaimer: This electronic medical record was generated, in whole or in part, using a voice recognition dictation system. Departure Departure: Impression: Primary Impression: Flank pain Disposition: HOME / SELF CARE / HOMELESS Condition: STABLE Referrals: [facility] Patient Instructions: Flank Pain, [id number] Additional Instructions: You are seen in the emergency room for right-sided flank pain. We completed an ultrasound which was unchanged from previous CT results. I spoke with urology at [facility] who was okay with your follow-up appointment on . If your pain is not controlled at home you can return to the emergency room. As discussed, you can take 1-2, hydrocodone's every 4-6 hours for discomfort. You could also take ibuprofen for breakthrough pain. I have listed urology' contact information above. Please return to the emergency room if you have worsening symptoms or concerns. EMERGENCY DEPARTMENT GENERAL DISCHARGE INSTRUCTIONS Thank you for coming to [facility] (ED) today and trusting us with you care. We trust that you had a positivie experience in our Emergency Department. If you wish to speak to the department management, you may call the director at [phone]. YOUR FOLLOW UP INSTRUCTIONS ARE FOLLOWS: 1. Do you have a private Doctor? If you do not have a private doctor, please ask for a resource list of physicians or clinics that may be able to assist you with follow up care. 2. The Emergency Physician has interpreted your x-rays. The X-Ray specialist will also review them. If there is a change in the findings, you will be notified in 48 hours when at all possible. 3. A lab test or culture has been done, your results will be reviewed and you will be notified if you need a change in treatment. ADDITIONAL INSTRUCTIONS AND INFORMATION: 1. Your care today has been supervised by a physician who is specially trained in emergency care. Many problems require more than one evaluation for a complete diagnosis and treatment. We recommend that you schedule your follow up appointment as recommended to ensure complete treatment of you illness or injury. If you are unable to obtain follow up care and continue to have a problem, or if your condition worsens, we recommend that you return to the ED. 2. We are not able to safely determine your condition over the phone nor are we able to give sound medical advice over the phone. For these safety reasons, if you call for medical advice we will ask you to come to the ED for further evaluation. 3. If you have any questions regarding these discharge instructions please call the ED at [phone]. SAFETY INFORMATION: In the interest of safety, wellness, and injury prevention; we encourage you to wear your sealbelt, if you smoke; quite smoking, and we encourage family to use a protective helmet for bicycling and other sporting events that present an increased risk for head injury. IF YOUR SYMPTOMS WORSEN OR NEW SYMPTOMS DEVELOP, OR YOU HAVE CONCERNS ABOUT YOUR CONDITION; OR IF YOUR CONDITION WORSENS WHILE YOU ARE WAITING FOR YOUR FOLLOW UP APPOINTMENT; EITHER CONTACT YOUR PRIMARY CARE DOCTOR, THE PHYSICIAN WHOSE NAME AND NUMBER YOU WERE GIVEN, OR RETURN TO THE ED IMMEDIATELY. RAJANI LOPES APRN November 16, 2021 14:29
[2021-11-16] MEDS ORDERED: MORPHINE SULFATE 4 MG/ML DISP.SYRIN. IV ONE (14:30)
[2021-11-16] MEDS ORDERED: ONDANSETRON PF 4 MG/2 ML VIAL. IVP ONE (14:30)
[2021-11-16] MEDS ORDERED: KETOROLAC 15 MG/ML VIAL. IVP ONE (14:30)
[2021-11-16] MEDS ORDERED: IV NORMAL SALINE 1,000ML 1,000 ML IV ONE (14:30)
[2021-11-16 14:48] LABS: BACTERIA,URINE FEW /HPF (0-FEW); CLARITY,URINE CLOUDY; COLOR,URINE AMBER; GLUCOSE,URINE NEG (NEG); NITRITE,URINE NEG (NEG); RBC,URINE TNTC /HPF (0-2); SQUAMOUS EPITHELIAL CELL,UR MOD /LPF; UROBILINOGEN,URINE 0.2 mg/dL (0.2 mg/dL)
[2021-11-16 15:09] LABS: U PREG PATIENT NEGATIVE (NEG)
[2021-11-16 15:49] LABS: BASO # 0.1 x10^3/uL (0.0-0.2); BASO % 1 % (0-3); EOS # 0.1 x10^3/uL (0.0-0.7); EOS % 2 % (0-3); HEMATOCRIT 37.7 % (36.0-47.0); HEMOGLOBIN 12.3 g/dL (12.0-15.5); LYMPH % 13 % (24-48); MEAN CORPUSCULAR HEMOGLOBIN 27 pg (25-35); MEAN CORPUSCULAR HGB CONC 33 g/dL (31-37); MEAN CORPUSCULAR VOLUME 83 fL (79-100); MONO # 0.4 x10^3/uL (0.0-1.1); MONO % 5 % (0-9); NEUT # 6.3 x10^3uL (1.8-7.7); NEUT % 80 % (31-73); PLATELET COUNT 218 x10^3/uL (140-400); RED BLOOD COUNT 4.56 x10^6/uL (3.50-5.40); RED CELL DISTRIBUTION WIDTH 15.8 % (11.5-14.5)
[2021-11-16 16:01] LABS: CALCIUM 9.1 mg/dL (8.5-10.1); CREATININE 0.9 mg/dL (0.6-1.0); GFR 72.6; POTASSIUM 4.1 mmol/L (3.5-5.1)
[2021-11-16 16:07] LABS: ALBUMIN 3.4 g/dL (3.4-5.0); ALBUMIN/GLOBULIN RATIO 0.9 (1.0-1.7); TOTAL BILIRUBIN 0.3 mg/dL (0.2-1.0)
--- NOTE | 2021-11-16 16:15 | RAD ---
EXAM: RENAL ULTRASOUND CLINICAL HISTORY: Reason: right flank pain / Spl. Instructions: / History: COMPARISON: None available. TECHNIQUE: Ultrasound examination of the bilateral kidneys and urinary bladder was performed. FINDINGS: Right kidney measures 11 cm in length. Moderate right-sided hydronephrosis. Left kidney measures 9.2 cm in long axis. No hydronephrosis. Bladder is decompressed not well evaluated. Visualized portions aorta and IVC are unremarkable. IMPRESSION: Moderate right-sided hydronephrosis Electronically signed by: Natacha Harris MD (11/16/2021 4:13 PM) [facility]
== END 2021-11-16 17:43 | disposition home or self-care (01) ==
LOC: ER 14:01
DX: R10.9 Unspecified abdominal pain (principal); N13.30 Unspecified hydronephrosis; F41.9 Anxiety disorder, unspecified; F31.9 Bipolar disorder, unspecified; Z88.0 Allergy status to penicillin
CPT/HCPCS: 36415; 76770; 80053; 81001; 81025; 85025; 87086; 96361; 96374; 96375; 99284; J1885; J2270; J2405; J7030